=== PATIENT | female | born 2000 | race African-American/Black ===

== ENCOUNTER 2023-10-16 22:34 | Emergency (ER) | payer MEDICAID, OTHER ==
[~2023-10-16] VITALS: Ht 165.1 cm; Wt 66.4 kg
[2023-10-16] MEDS ORDERED: BUPR-597 PO (22:42)
[2023-10-16] MEDS ORDERED: DOXE50CA PO (22:42)
[2023-10-16] MEDS ORDERED: HYDR-3363 PO (22:43)
[2023-10-16 23:16] LABS: BASO % 0.3 % (0.0-1.0); EOS # 0.1 10^3/uL (0.0-0.5); EOS % 0.9 % (0.0-3.0); HEMATOCRIT 37.8 % (36.0-47.0); HEMOGLOBIN 13.1 g/dl (12.0-15.5); LYMPH # 1.9 10^3/uL (1.5-5.0); LYMPH % 20.5 % (24.0-44.0); MEAN CORPUSCULAR HEMOGLOBIN 27.9 pg (27.0-33.0); MEAN CORPUSCULAR HGB CONC 34.7 g/dl (32.0-36.5); MEAN CORPUSCULAR VOLUME 80.6 fl (80.0-96.0); MONO # 0.5 10^3/uL (0.0-0.8); MONO % 5.1 % (2.0-8.0); NEUTROPHILS # 6.8 10^3/uL (1.5-8.5); NEUTROPHILS % 73.1 % (36.0-66.0); PLATELET COUNT, AUTOMATED 249 10^3/uL (150-450); RED BLOOD COUNT 4.69 10^6/uL (4.00-5.40); WHITE BLOOD COUNT 9.3 10^3/uL (4.0-10.0)
[2023-10-16 23:51] LABS: LIPASE 28 U/L (12-53)
[2023-10-16 23:53] LABS: ALBUMIN 4.3 G/DL (3.2-5.2); ALKALINE PHOSPHATASE 43 U/L (46-116); ALT/SGPT 17 U/L (7.0-40); AST/SGOT < 8 U/L (<34); BILIRUBIN,DIRECT 0.3 MG/DL (<0.4); BLOOD UREA NITROGEN 9 MG/DL (9-23); CALCIUM LEVEL 8.8 MG/DL (8.5-10.1); CARBON DIOXIDE LEVEL 24 MMOL/L (20-31); CHLORIDE LEVEL 106 MMOL/L (98-107); CREATININE FOR GFR 0.94 MG/DL (0.55-1.30); GLOMERULAR FILTRATION RATE > 60.0 (>60); GLUCOSE, FASTING 95 MG/DL (60-100); SODIUM LEVEL 141 MMOL/L (136-145); TOTAL PROTEIN 6.8 G/DL (5.7-8.2)
[2023-10-17 00:01] LABS: HCG, SERUM QUALITATIVE NEGATIVE (NEGATIVE)
[2023-10-17] MEDS: ONDANSETRON 4MG ORAL DISINTEGRATING TAB PO ONE (00:09)
[2023-10-17 01:06] VITALS: BP 127/98; TEMP 97.9; O2SAT 100
== END 2023-10-17 01:29 | disposition home or self-care (01) ==
LOC: M ED 22:34
DX: R11.2 Nausea with vomiting, unspecified (principal); Z79.899 Other long term (current) drug therapy

== ENCOUNTER → 2023-10-30 | Outpatient (CLI) | payer OTHER ==
[~2023-10-30] MED LIST: BUPR-597 PO; DOXE50CA PO; HYDR-3363 PO
[2023-10-30 10:53] LABS: BASO # 0.1 10^3/uL (0.0-0.2); BASO % 0.5 % (0.0-1.0); EOS # 0.2 10^3/uL (0.0-0.5); EOS % 1.6 % (0.0-3.0); HEMATOCRIT 38.8 % (36.0-47.0); HEMOGLOBIN 13.1 g/dl (12.0-15.5); LYMPH # 3.4 10^3/uL (1.5-5.0); LYMPH % 35.5 % (24.0-44.0); MEAN CORPUSCULAR HEMOGLOBIN 27.6 pg (27.0-33.0); MEAN CORPUSCULAR HGB CONC 33.8 g/dl (32.0-36.5); MEAN CORPUSCULAR VOLUME 81.7 fl (80.0-96.0); MONO # 0.5 10^3/uL (0.0-0.8); MONO % 5.6 % (2.0-8.0); NEUTROPHILS # 5.5 10^3/uL (1.5-8.5); NEUTROPHILS % 56.6 % (36.0-66.0); PLATELET COUNT, AUTOMATED 303 10^3/uL (150-450); RED BLOOD COUNT 4.75 10^6/uL (4.00-5.40); WHITE BLOOD COUNT 9.7 10^3/uL (4.0-10.0)
[2023-10-30 10:57] LABS: ERYTHROCYTE SEDIMENTATION RATE < 1 mm/hr (0-20)
[2023-10-30 11:24] LABS: C REACTIVE PROTEIN QUANTITATIV < 0.40 MG/DL (<1.0)
[2023-10-30 11:25] LABS: RHEUMATOID FACTOR QUANT < 3.5 IU/ML (<14)
[2023-10-30 11:26] LABS: ALBUMIN 4.2 G/DL (3.2-5.2); ALKALINE PHOSPHATASE 56 U/L (46-116); ALT/SGPT 18 U/L (7.0-40); AST/SGOT < 8 U/L (<34); BILIRUBIN,TOTAL 0.6 MG/DL (0.3-1.2); BLOOD UREA NITROGEN 14 MG/DL (9-23); CALCIUM LEVEL 9.4 MG/DL (8.5-10.1); CARBON DIOXIDE LEVEL 28 MMOL/L (20-31); CHLORIDE LEVEL 103 MMOL/L (98-107); CHOLESTEROL LEVEL 155 MG/DL (<200); CHOLESTEROL RISK RATIO 2.82 (<5); CREATININE FOR GFR 0.93 MG/DL (0.55-1.30); GLOMERULAR FILTRATION RATE > 60.0 (>60); GLUCOSE, FASTING 88 MG/DL (60-100); HDL CHOLESTEROL 54.8 MG/DL (>40); LDL CHOLESTEROL 78.6 MG/DL (<100); NON-HDL-C 100.2 MG/DL; POTASSIUM SERUM 3.4 MMOL/L (3.5-5.1); SODIUM LEVEL 138 MMOL/L (136-145); TOTAL PROTEIN 7.1 G/DL (5.7-8.2); TRIGLYCERIDES LEVEL 108 MG/DL (<150)
[2023-10-30 11:27] LABS: THYROID STIMULATING HORMONE 3.099 uIU/ML (0.55-4.78)
[2023-10-30 11:57] LABS: HIV 1&2 SCREEN NEGATIVE (NEGATIVE)
[2023-10-30 12:05] LABS: HEPATITIS C VIRUS ABY INDEX < 0.02 INDEX (<0.8)
[2023-10-31 10:57] LABS: ANA SCREEN, IFA NEGATIVE (NEGATIVE)
[2023-10-31 13:02] LABS: CYCLIC CITRULLINATED PEPTIDE < 16 UNITS (<20)
[2023-10-31 15:30] LABS: SSA SJOGRENS A <1.0 NEG AI (<1.0 NEG); SSB SJOGRENS B <1.0 NEG AI (<1.0 NEG)
== END ==
LOC: M LAB 09:32
PROVIDERS: ATTEND Physician Assistant
DX: Z11.9 Encounter for screening for infectious and parasitic diseases, unspecified (principal)

== ENCOUNTER 2023-11-15 10:13 | Emergency (ER) | payer OTHER ==
[~2023-11-15] VITALS: Ht 165.1 cm; Wt 67.5 kg
[2023-11-15] MEDS ORDERED: WELLTAB38 PO (14:41)
[2023-11-15 15:06] VITALS: BP 122/87; TEMP 98.9; O2SAT 98
== END 2023-11-15 15:03 | disposition home or self-care (01) ==
LOC: M ED 10:13
DX: F95.9 Tic disorder, unspecified (principal); R47.89 Other speech disturbances; F43.10 Post-traumatic stress disorder, unspecified; F12.10 Cannabis abuse, uncomplicated; F10.10 Alcohol abuse, uncomplicated; Z79.899 Other long term (current) drug therapy

== ENCOUNTER 2023-12-05 22:17 | Emergency (ER) | payer OTHER ==
[~2023-12-05] VITALS: Ht 165.1 cm; Wt 68.2 kg
[2023-12-05 22:25] VITALS: BP 147/95; TEMP 98.7; O2SAT 100
== END 2023-12-06 05:10 | disposition left against medical advice (07) ==
LOC: M ED 22:17
DX: Z53.21 Procedure and treatment not carried out due to patient leaving prior to being seen by health care provider (principal)

== ENCOUNTER → 2023-12-05 | Outpatient (CLI) | payer OTHER ==
[~2023-12-05] MED LIST changes: +WELLTAB38 PO
== END ==
LOC: M EKG 11:10
PROVIDERS: ATTEND Physician Assistant
DX: R55 Syncope and collapse (principal)

== ENCOUNTER → 2023-12-12 | Outpatient (CLI) | payer OTHER | LOC: M PLAIMG 11:08 | PROVIDERS: ATTEND Physician Assistant | DX: R47.9 Unspecified speech disturbances (principal) ==

== ENCOUNTER → 2024-01-07 | Outpatient (REF) | payer OTHER ==
[2024-01-07 17:45] LABS: HEMATOCRIT 38.5 % (36.0-47.0); HEMOGLOBIN 12.8 g/dl (12.0-15.5); MEAN CORPUSCULAR HEMOGLOBIN 27.6 pg (27.0-33.0); MEAN CORPUSCULAR HGB CONC 33.2 g/dl (32.0-36.5); PLATELET COUNT, AUTOMATED 244 10^3/uL (150-450); RED BLOOD COUNT 4.64 10^6/uL (4.00-5.40); WHITE BLOOD COUNT 6.1 10^3/uL (4.0-10.0)
[2024-01-07 17:52] LABS: BLOOD UREA NITROGEN 14 MG/DL (9-23); CALCIUM LEVEL 9.1 MG/DL (8.5-10.1); CARBON DIOXIDE LEVEL 29 MMOL/L (20-31); CHLORIDE LEVEL 107 MMOL/L (98-107); CREATININE FOR GFR 0.95 MG/DL (0.55-1.30); GLOMERULAR FILTRATION RATE > 60.0 (>60); GLUCOSE, FASTING 73 MG/DL (60-100); MAGNESIUM LEVEL 1.9 MG/DL (1.8-2.4); POTASSIUM SERUM 4.8 MMOL/L (3.5-5.1); SODIUM LEVEL 140 MMOL/L (136-145)
[2024-01-07 17:53] LABS: THYROID STIMULATING HORMONE 2.108 uIU/ML (0.55-4.78)
== END ==
LOC: M LAB REF 13:01
PROVIDERS: ATTEND Physician Assistant
DX: R10.9 Unspecified abdominal pain (principal); R51.9 Headache, unspecified

== ENCOUNTER → 2024-01-24 | Outpatient (CLI) | payer OTHER | LOC: M WHC 14:25 | PROVIDERS: ATTEND Physician Assistant | DX: R10.2 Pelvic and perineal pain (principal); Z97.5 Presence of (intrauterine) contraceptive device ==

== ENCOUNTER → 2024-05-19 | Outpatient (REF) | payer MEDICAID | LOC: M PLALAB 14:28 | PROVIDERS: ATTEND Obstetrics & Gynecology | DX: Z01.419 Encounter for gynecological examination (general) (routine) without abnormal findings (principal) ==

== ENCOUNTER → 2024-11-26 | Outpatient (CLI) | payer OTHER ==
[~2024-11-26] MED LIST changes: -BUPR-597 PO; +BUPR-766 PO
[2024-11-26 15:29] LABS: BASO # 0.1 10^3/uL (0.0-0.2); BASO % 0.9 % (0.0-1.0); EOS # 0.5 10^3/uL (0.0-0.5); EOS % 6.6 % (0.0-3.0); LYMPH # 2.0 10^3/uL (1.5-5.0); LYMPH % 29.2 % (24.0-44.0); MONO # 0.5 10^3/uL (0.0-0.8); MONO % 6.6 % (2.0-8.0); NEUTROPHILS # 3.8 10^3/uL (1.5-8.5); NEUTROPHILS % 56.4 % (36.0-66.0); PLATELET COUNT, AUTOMATED 272 10^3/uL (150-450)
[2024-11-26 15:32] LABS: ALT/SGPT 24 U/L (7.0-40); AST/SGOT 16 U/L (<34); CALCIUM LEVEL 9.0 MG/DL (8.5-10.1); CARBON DIOXIDE LEVEL 26 MMOL/L (20-31); CHLORIDE LEVEL 105 MMOL/L (98-107); CREATININE FOR GFR 0.93 MG/DL (0.55-1.30); GLOMERULAR FILTRATION RATE 88.0 (>60); POTASSIUM SERUM 4.6 MMOL/L (3.5-5.1); SODIUM LEVEL 141 MMOL/L (136-145)
[2024-11-26 15:34] LABS: HEPATITIS B SURFACE ANTIBODY POSITIVE (POSITIVE)
[2024-11-26 15:59] LABS: HIV 1&2 SCREEN NEGATIVE (NEGATIVE)
[2024-11-26 16:07] LABS: HEPATITIS C VIRUS ABY INDEX < 0.02 INDEX (<0.8)
[2024-11-26 16:26] LABS: Trichomonas vaginalis (AMP) NOT DETECTED (NEGATIVE)
[2024-11-26 16:50] LABS: GC DNA AMPLIFICATION NEGATIVE (NEGATIVE)
== END ==
LOC: M PLALAB 10:56
PROVIDERS: ATTEND Internal Medicine Infectious Disease
DX: T74.21XA Adult sexual abuse, confirmed, initial encounter (principal); N76.0 Acute vaginitis; Y07.9 Unspecified perpetrator of maltreatment and neglect

== ENCOUNTER → 2025-04-08 | Outpatient (CLI) | payer OTHER | LOC: M PLAIMG 15:20 | PROVIDERS: ATTEND Nurse Practitioner Family | DX: G40.309 Generalized idiopathic epilepsy and epileptic syndromes, not intractable, without status epilepticus (principal); G43.011 Migraine without aura, intractable, with status migrainosus ==